=== PATIENT | male | born 1975 | race Caucasian/White ===

== ENCOUNTER 2017-12-03 14:20 | Emergency (ER) | payer OTHER ==
[2017-12-03 14:29] VITALS: BP 117/83; PULSE 101; RESP 20; TEMP 98.5
--- NOTE | 2017-12-03 15:15 | ED ---
ENT HPI - General Chief complaint: ENT Stated complaint: Sore throat Time Seen by Provider: 12/03/17 14:34 Source: patient Mode of arrival: ambulatory Limitations: no limitations - History of Present Illness Initial comments: This is a 42-year-old male with past medical history of recurrent strep throat infections who presents today for chief complaint of sore throat 2 days. Patient states that for the past 2 days he has been experiencing sore a sore throat, fatigue, and headache. She states that this feels exactly the same as when he has had previous strep throat infections. Patient admits to headache, sore throat, erythema and exudates of the tonsils, and interior cervical lymph node tenderness. Patient denies fever, chills, nausea, vomiting, difficulty swallowing, difficulty breathing, rash, cough. In addition patient denies any recent shortness of breath, chest pain, back pain, abdominal pain, numbness or tingling, dysuria or hematuria, constipation or diarrhea, headaches or visual changes, or any other complaints. Denies recent antibiotic use. Last Infection one year ago. - Related Data Previous Rx's Medication Instructions Recorded Amoxicillin 500 mg PO Q12HR 10 Days #20 cap 12/03/17 Allergies Allergy/AdvReac Type Severity Reaction Status Date / Time No Known Allergies Allergy Verified 12/03/17 14:34 Review of Systems ROS Statement: Those systems with pertinent positive or pertinent negative responses have been documented in the HPI. ROS Other: All systems not noted in ROS Statement are negative. Constitutional: Denies: fever, chills ENT: Reports: as per HPI, throat pain Respiratory: Denies: cough, dyspnea Cardiovascular: Denies: chest pain, palpitations Endocrine: Reports: fatigue Gastrointestinal: Denies: abdominal pain, nausea, vomiting, diarrhea, constipation Genitourinary: Denies: urgency, dysuria, frequency Musculoskeletal: Denies: back pain Skin: Denies: rash Neurological: Reports: as per HPI, headache. Denies: confusion Past Medical History Past Medical History: No Reported History History of Any Multi-Drug Resistant Organisms: None Reported Past Surgical History: Hernia Repair Additional Past Surgical History / Comment(s): left ankle surgery, right shoulder surgery, double hernia surgery Past Psychological History: No Psychological Hx Reported Smoking Status: Never smoker Past Alcohol Use History: Rare Past Drug Use History: None Reported General Exam - General Exam Comments Initial Comments: General: The patient is awake and alert, in no distress, and does not appear acutely ill. Eye: Pupils are equal, round and reactive to light, extra-ocular movements are intact. No nystagmus. There is normal conjunctiva bilaterally. No signs of icterus. Ears, nose, mouth and throat: There are moist mucous membranes and no oral lesions. Uvula midline, no evidence of peritonsillar abscess. Erythematous oropharnyx with erythematous, enlarged tonsils (+3) with tonsillar exudated ( white). Tenderness and enlargement of the anterior cervical lymph nodes. No posterior lymphadenopathy. Cardiovascular: There is a regular rate and rhythm. No murmur, rub or gallop is appreciated. Respiratory: Lungs are clear to auscultation, respirations are non-labored, breath sounds are equal. No wheezes, stridor, rales, or rhonchi. Gastrointestinal: [Soft, non-distended, non-tender abdomen without masses or organomegaly noted. There is no rebound or guarding present. No CVA tenderness. Bowel sounds are unremarkable.] Neurological: A&O x 3. CN II-XII intact, There are no obvious motor or sensory deficits. Coordination appears grossly intact. Speech is normal. Skin: Skin is warm and dry and no rashes or lesions are noted. Psychiatric: Cooperative, appropriate mood & affect, normal judgment. Limitations: no limitations Course Vital Signs 12/03/17 14:23 Temperature 98.5 F Pulse Rate 101 H Respiratory 20 Rate Blood Pressure 117/83 O2 Sat by Pulse 97 Oximetry Medical Decision Making - Medical Decision Making 42-year-old male with past medical history recurrent strep infections. Who presents today for chief complaint of sore throat. Physical examination revealed +3 tonsils, erythematous with tonsillar exudates. Tender and palpable cervical anterior lymphadenopathy. Vital signs within normal limits patient afebrile. Rapid strep testing positive. Patient was seen in person by Dr. Keen , who agreed with diagnosis of strep throat. Patient was discharged with prescription for amoxicillin 500 mg every 12 hours for 10 days. he can alternate Tylenol and ibuprofen for pain management as needed. He was instructed to return to emergency department if he has difficulty swallowing or breathing. or if symptoms worsen/change. Patient is to follow-up with primary care 1-2 days. It was recommended to the patient he be seen by a ENT due to recurrent strep infections . Pt agreed plan discharge in stable condition . \\ - Lab Data Lab Results 12/03/17 Range/Units 14:31 Group A Strep Rapid Positive A (Negative) Disposition Clinical Impression: Strep pharyngitis Disposition: HOME SELF-CARE Condition: Good Instructions: Strep Throat (ED) Additional Instructions: Please use medication as discussed. Please follow-up with family doctor in the next 2 days of symptoms have not improved. Please return to emergency room if the symptoms increase or worsen or for any other concerns, as discussed. Prescriptions: Amoxicillin 500 mg PO Q12HR 10 Days #20 cap Is patient prescribed a controlled substance at d/c from ED?: No Referrals: None,Stated [Primary Care Provider] - 1-2 days Time of Disposition: 15:14
== END 2017-12-03 15:17 | disposition home or self-care (01) ==
LOC: EC 14:20
DX: J02.0 Streptococcal pharyngitis (principal); R53.83 Other fatigue
CPT/HCPCS: 87430; 99283

== ENCOUNTER → 2019-07-12 | Outpatient (CLI) | payer OTHER ==
--- NOTE | 2019-07-12 20:05 | CONS ---
CONSULTATION DATE OF SERVICE: 07/12/2019 44-year-old gentleman who has been evaluated in Sleep Center for possible obstructive sleep apnea-hypopnea syndrome. HISTORY OF PRESENT ILLNESS SLEEP/WAKE EVALUATION: SLEEP SCHEDULE: Patient's usual sleep schedule on working days from around 8 to 9:00 pm until 5 a.m. On weekends from 8 or 9 p.m. until 8 a.m. FALLING ASLEEP: No problems with falling asleep, although he has TV set in bedroom. DURING SLEEP: He usually sleeps on the back and side position. According to his , he has very loud snoring and witnessed episodes of stopped breathing during sleep. Patient wakes up from sleep with episodes of choking, grinding teeth, palpitations up to 3 times per night and possibly 1 time per night with nocturia. No history of hypnagogic hallucinations, sleep paralysis or cataplexy. DURING THE DAY/SLEEP WAKE EVALUATION: In the morning, patient wakes up tired, has difficulties to pay attention, falling asleep during the day. He has problems with memory and irritability. [place] Sleepiness Scale significantly increased to 16. He may take naps around 2 to 3 pm, usually does not feel refreshed after a nap. No vivid dreams during naps. He drinks up to 3 cups of caffeinated beverages during the day. PAST MEDICAL HISTORY: History of multiple episodes of tonsillitis at young age. PAST SURGICAL HISTORY: Bilateral shoulder surgery, bilateral inguinal hernia repair. MEDICATIONS: None at the present time. SOCIAL HISTORY: Negative for smoking. Alcohol consumption rarely. FAMILY HISTORY: Hypertension heart problems, hyperlipidemia, snoring, diabetes, stomach cancer. REVIEW OF SYSTEMS: Awakenings from sleep, significant excessive daytime sleepiness during. PHYSICAL EXAM: gentleman without distress. BP 122/77, HR 76, RR 16, height 5 feet 7 inches, weight 195 pounds. Body mass index 30.0, temperature 97.8, oxygen saturation at room air 96%. HEENT: Oropharynx, short distance between soft palate and posterior pharyngeal wall. Hypertrophy of tonsils, left tonsil with a small white plaque. NECK: Supple, no JVD. Thyroid is not palpable. LUNGS: Clear to percussion and to auscultation. Good air exchange. No wheezing or rhonchi. HEART: S1, S2 regular. No murmurs, gallops, or rubs. ABDOMEN: Slightly obese. Soft and nontender. Bowel sounds are present. No organomegaly appreciated. EXTREMITIES: No clubbing or cyanosis. PORTFOLIO ARCHITECT: Awake, alert, and oriented X3. Cranial nerves 2 to 7 intact. There is no fasciculation or atrophy. noted. No focal deficits observed. IMPRESSION: 1. Loud snoring, witnessed episodes of stopped breathing during sleep. Hypertrophy of tonsils sleepiness, obstructive sleep apnea-hypopnea syndrome. 2. [place] Sleepiness Scale significantly increased to 16. Dictate necessity to include hypersomnia in differential diagnosis. 3. Mild obesity, borderline, body mass index 30.0. 4. Status post bilateral shoulder surgery. 5. Status post bilateral inguinal hernia surgery. PLAN: 1. Polysomnography for evaluation of patient's breathing during sleep. 2. CPAP/BiPAP titration if sleep study confirms obstructive sleep apnea-hypopnea syndrome. 3. Preferable position during sleep on the side. 4. No driving if patient feels any sleepiness. 5. I will see patient for follow up visit to explain results of testing and following plan. 6. Multiple sleep latency test if the sleep study will be negative for obstructive sleep apnea-hypopnea syndrome. Thank you very much for referring this patient for consultation. Sincerely, Hemanth Medina MD, PhD, FAASM Diplomat of [employer] Bean Viner of [facility] [place] MMYVROSEL / GRACEN: [id number] /
== END | disposition home or self-care (01) ==
LOC: SLEEP 13:50
PROVIDERS: ATTEND Internal Medicine
DX: G47.33 Obstructive sleep apnea (adult) (pediatric) (principal); J35.1 Hypertrophy of tonsils; E66.9 Obesity, unspecified; Z98.890 Other specified postprocedural states; Z68.30 Body mass index [BMI] 30.0-30.9, adult
CPT/HCPCS: 99211

== ENCOUNTER → 2020-01-04 | Outpatient (CLI) | payer OTHER ==
--- NOTE | 2020-01-05 08:17 | SFUN ---
SLEEP CENTER FOLLOW UP NOTE DATE OF SERVICE: A 44-year-old gentleman who has been followed in the Sleep Center for treatment of obstructive sleep apnea-hypopnea syndrome. Recently, patient had sleep studies done and I discussed results of sleep studies with him in detail. Diagnostic polysomnogram showed severe sleep apnea. During titration, aspiration was normalized. Subsequently, patient received his CPAP equipment, today since his first visit after he started to use CPAP treatment. Patient reported that he sleeps well with the machine using it every night, sleep much better than before. Feels better during the day. [place] Sleepiness Scale is 2. I checked CPAP unit, CPAP pressure in the range 4-7 cm of water. Average pressure 6.8 cm of water. Usage is 100% of the time and 92% of the time for more than 4 hours. Average usage 6 hours, 19 minutes per night. Apnea-hypopnea index 3.2, which is in normal range. MEDICATIONS: None. PHYSICAL EXAM: Patient in no distress, BP 140/81, HR 85, RR 16, weight 193.2, temperature 98.2, oxygen saturation at room air 96%. OROPHARYNX: Low position of soft palate. NECK: Supple, no JVD. Thyroid is not palpable. LUNGS: Clear to percussion and to auscultation. Good air exchange. No wheezing or rhonchi. HEART: S1, S2 regular. No murmurs, gallops, or rubs. ABDOMEN: Soft and nontender. Bowel sounds are present. No organomegaly appreciated. EXTREMITIES: No clubbing or cyanosis. DEPARTMENT STORE SALESPERSON: Awake, alert, and oriented X3. Cranial nerves 2 to 7 intact. There is no fasciculation or atrophy. noted. No focal deficits observed. IMPRESSION: 1. Severe obstructive sleep apnea-hypopnea syndrome; apnea-hypopnea index 33.3 with oxygen desaturation to 82.5% on control with CPAP. The patient demonstrated 100% compliance with treatment, benefitting from treatment. The patient daytime alertness normalized while on treatment with CPAP. 2. Mild obesity. 3. Status post bilateral shoulder surgery. 4. Status post bilateral inguinal hernia repair. 5. History of seasonal allergies. PLAN: 1. Patient will continue to use PAP equipment every night for the whole night. 2. Sleep hygiene with regular time in bed for at least 7-1/2 to 8 hours. 3. Precautions related to driving. No driving if feeling sleepiness. 4. I will maintain all necessary prescription for PAP supplies including mask, tube, filters. 5. Watching weight. 6. No driving if feeling sleepiness. 7. Follow-up visit in 6 months or earlier if patient has any problems. Thank you very much for allowing me to participate in the management of your patient. Sincerely, Hemanth Medina MD, PhD, FAASM Diplomat of [employer] of Internal Medicine Broadcast Engineer of [facility] [place] MMODL / GRACEN: [id number] /
== END | disposition home or self-care (01) ==
LOC: SLEEP 13:56
PROVIDERS: ATTEND Internal Medicine
DX: G47.33 Obstructive sleep apnea (adult) (pediatric) (principal); E66.9 Obesity, unspecified; Z99.89 Dependence on other enabling machines and devices; Z98.890 Other specified postprocedural states

== ENCOUNTER → 2020-07-04 | Outpatient (CLI) | payer OTHER ==
--- NOTE | 2020-07-05 00:18 | SFUN ---
SLEEP CENTER FOLLOW UP NOTE DATE OF SERVICE: 07/04/2020 45-year-old gentleman who has been followed in Sleep Center for treatment of obstructive sleep apnea-hypopnea syndrome. The patient successfully continues to use his CPAP equipment every night and feels comfortable with the mask. No problem with humidification. [place] Sleepiness Scale today is 2 which is totally normal. I checked his CPAP unit. Range of the pressure 4-6. Average pressure of 5.9 cm of water. Usage is 28 out of 30 nights for more than 4 hours with average usage is 6.2 hours per night. Leak is 11 L/minute which is acceptable. Apnea-hypopnea index is 2.7, which is normal. CURRENT MEDICATIONS: None. PHYSICAL EXAM: Patient in no distress. BP 131/85, HR 77, RR 15, height 5 feet and 8.5 inches, weight 195.8 pounds, body mass index 29.6, temperature 98.2, oxygen saturation at room air 98%. HEENT: PERRLA, EOMI. Oropharynx low position of soft palate. NECK: Supple, no JVD. Thyroid is not palpable. LUNGS: Clear to percussion and to auscultation. Good air exchange. No wheezing or rhonchi. HEART: S1, S2 regular. No murmurs, gallops, or rubs. ABDOMEN: Soft and nontender. Bowel sounds are present. No organomegaly appreciated. EXTREMITIES: No clubbing or cyanosis. BUSINESS INTELLIGENCE REPORTING ANALYST: Awake, alert, and oriented X3. Cranial nerves 2 to 7 intact. There is no fasciculation or atrophy. noted. No focal deficits observed. IMPRESSION: 1. Severe obstructive sleep apnea-hypopnea syndrome with AHI 33.3 on full control with CPAP. Patient demonstrated great compliance with treatment benefitting from treatment. 2. Overweight. 3. Status post bilateral shoulder surgery. 4. Status post bilateral inguinal hernia repair. 5. History of seasonal allergies. PLAN: 1. I again discussed with the patient to be sure that everything is cleaned well and be sure that the machine and tube was dry and dried in the morning after usage. 2. Patient will continue to use PAP equipment every night for the whole night. 3. Sleep hygiene with regular time in bed for at least 7-1/2 to 8 hours. 4. Precautions related to driving. No driving if feeling sleepiness. 5. I will maintain all necessary prescription for PAP supplies including mask, tube, filters. 6. Watching weight. 7. No driving if feeling sleepiness. 8. Follow-up visit in 6 months or earlier if patient has any problems. Thank you very much for allowing me to participate in management of your patient. Sincerely, Hemanth Medina MD, PhD, FAASM Diplomat of [place] [employer] Special[employer] Board of Internal Medicine [employer] Director of [facility] [place] MMODL / IJN: [id number] /
== END | disposition home or self-care (01) ==
LOC: SLEEP 13:07
PROVIDERS: ATTEND Internal Medicine
DX: G47.33 Obstructive sleep apnea (adult) (pediatric) (principal); E66.3 Overweight; Z99.89 Dependence on other enabling machines and devices; Z96.611 Presence of right artificial shoulder joint; Z96.612 Presence of left artificial shoulder joint; Z98.890 Other specified postprocedural states; Z91.09 Other allergy status, other than to drugs and biological substances

== ENCOUNTER → 2021-01-16 | Outpatient (CLI) | payer OTHER ==
--- NOTE | 2021-01-17 09:10 | SFUN ---
SLEEP CENTER FOLLOW UP NOTE DATE OF SERVICE: 01/16/2021 The 45-year-old gentleman has been followed in Sleep Center for treatment of obstructive sleep apnea-hypopnea syndrome. Patient continues to use CPAP equipment every night but developed snoring recently, according to his . [place] Sleepiness Scale today is 1, which is perfect. I checked his CPAP unit. Range of the pressure is 4-6 with average pressure of 5.9, usage 29/30 nights and 22/30 nights for more than 4 hours, average 5.5 hours per night. Leak is 25 L/minute, which is borderline. Apnea-hypopnea index is 2.3. MEDICATIONS: 1. Ibuprofen as needed. 2. Singulair once a day. PHYSICAL EXAMINATION: GENERAL: A pleasant patient in no distress. VITAL SIGNS: BP 148/70, HR 78, RR 15, height 5 feet 8-1/2 inches, weight 185 pounds, body mass index 27.7, temperature 98.8, oxygen saturation at room air 98%. HEENT: PERRLA, EOMI, evaluation of oropharynx showed tongue protrudes midline. Low position of soft palate. NECK: Supple, no JVD. Thyroid is not palpable. LUNGS: Clear to percussion and to auscultation. Good air exchange. No wheezing or rhonchi. HEART: S1, S2 regular. No murmurs, gallops, or rubs. ABDOMEN: Soft and nontender. Bowel sounds are present. No organomegaly appreciated. EXTREMITIES: No clubbing or cyanosis. DOG TRACK KENNEL MANAGER: Awake, alert, and oriented X3. Cranial nerves 2 to 7 intact. There is no fasciculation or atrophy. noted. No focal deficits observed. IMPRESSION: 1. Severe obstructive sleep apnea-hypopnea syndrome; apnea-hypopnea index 33.3. The patient demonstrated great compliance with treatment, benefitting from treatment, but developed some slight snoring on the machine. 2. Status post bilateral shoulder surgery. 3. Status post bilateral inguinal hernia repair. 4. History of seasonal allergy. PLAN: 1. I changed pressure in the machine to the range from 4-9. 2. Patient will continue to use PAP equipment every night for the whole night. 3. Sleep hygiene with regular time in bed for at least 7-1/2 to 8 hours. 4. Precautions related to driving. No driving if feeling sleepiness. 5. I will maintain all necessary prescription for PAP supplies including mask, tube, filters. 6. Watching weight. 7. Follow-up visit in 6 months or earlier if patient has any problems. Thank you very much for allowing me to participate in the management of your patient. Sincerely, Hemanth Medina MD, PhD, FAASM Diplomat of [place] [employer] Specialties Sleep Medicine Board of [place] Board of Internal Medicine Studio Owner of [facility] [place] MMODL / GRACEN: [id number] /
== END ==
LOC: SLEEP 14:11
PROVIDERS: ATTEND Internal Medicine
DX: G47.33 Obstructive sleep apnea (adult) (pediatric) (principal); Z98.890 Other specified postprocedural states; Z99.89 Dependence on other enabling machines and devices; Z87.892 Personal history of anaphylaxis

== ENCOUNTER → 2022-08-27 | Outpatient (CLI) | payer OTHER ==
--- NOTE | 2022-08-27 17:35 | P.PN ---
Subjective DATE: 08/27/2022 FOLLOW UP VISIT. Patient with obstructive sleep apnea hypopnea syndrome return to sleep center for follow-up visit. Information from previous visit have been reviewed. Patient is using PAP equipment every night for the whole night, getting PAP supplies in time. The patient does not have significant problems with the mask, PAP unit and humidification. [place] sleepiness scale is 7, which is normal. I checked information from PAP unit. PAP unit pressure 4-9, average 8.7 cm H2O. Usage is 77 % for more then 4 hours, average 5.5 hours per night. Leak is 27.8 l/m, which is in acceptable range. Apnea Hypopnea Index is 2.2, which is normal. MEDICATIONS: 1. Ibuprofen During physical exam: GENERAL: A pleasant patient without any distress. VITAL SIGNS: BP 153/87, HR 79, RR 16 , weight 188.2, temperature 97.8, oxygen saturation at room air 98 % . HEENT: PERRLA, EOMI.low position of soft palate, Mallapati 3 . NECK: Supple. No JVD. LUNGS: Clear to percussion and to auscultation. Good air exchange. No wheezing or rhonchi. HEART: S1, S2 regular. ABDOMEN: Soft and nontender.[] EXTREMITIES: No clubbing or cyanosis. PARTS PROCESSOR: Awake, alert, and oriented x3. No focal deficit. Impressions: 1. Obstructive sleep apnea-hypopnea syndrome. Patient demonstrated great compliance with treatment, benefiting from treatment. 2. History of seasonal ALLERGY. 3. Status post bilateral shoulder surgery. 4. Status post bilateral inguinal hernia repair. Plan: 1. Continue using PAP equipment every night for the whole night. 2. To change air filter at least 1-2 times per month. 3. PAP unit should stay lower then position of the head. 4. Advised patient to remove all remaining water from humidifier canister daily and make it dry after each usage. Refill canister with fresh distilled water before each usage. 5. Sleep hygiene with regular time in bed for at least 8 hours. 6. Precautions related to driving. No driving if feel any sleepiness. 7. I will maintain prescription for PAP supplies including mask, tube, filters. 8. Watching weight. 9. Follow up visit in 6 months or earlier if patient has any problems. Thank you very much for allowing me to participate in the management of your patient. Hemanth Medina MD, PhD, FAASM. Diplomat of [place] Board [employer] Sleep Medicine, Sleep Medicine Board by [place] Board of Internal Medicine Spot Machine Operator of [facility] [place]
== END ==
LOC: SLEEP 15:47
PROVIDERS: ATTEND Internal Medicine
DX: G47.33 Obstructive sleep apnea (adult) (pediatric) (principal); Z96.611 Presence of right artificial shoulder joint; Z96.612 Presence of left artificial shoulder joint; Z79.1 Long term (current) use of non-steroidal anti-inflammatories (NSAID); Z98.890 Other specified postprocedural states; Z99.89 Dependence on other enabling machines and devices
CPT/HCPCS: 99212

== ENCOUNTER → 2023-03-18 | Outpatient (CLI) | payer OTHER ==
--- NOTE | 2023-03-18 17:34 | P.PN ---
Subjective DATE: 03/18/2023 FOLLOW UP VISIT. Patient with obstructive sleep apnea hypopnea syndrome return to sleep center for follow-up visit. Information from previous visit have been reviewed. Patient is using PAP equipment every night for the whole night, getting PAP supplies in time. The patient does not have significant problems with the mask, PAP unit and humidification. [place] sleepiness scale is 5, which is normal. I checked information from PAP unit and discussed it with patient in details. PAP unit pressure 4-9 average 8.5 cm H2O. Usage is 80 % for more then 4 hours, average 5.75 hours per night. Leak is slightly increased to 34.8 l/m. Apnea Hypopnea Index is 3.6, which is normal. MEDICATIONS:1. Ibuprofen During physical exam: GENERAL: A pleasant patient without any distress. VITAL SIGNS: BP 136/86, HR 77, RR 16 , weight 179.4, temperature 98.2, oxygen saturation at room air 97 % . HEENT: PERRLA, EOMI.low position of soft palate, Mallapati 3 . NECK: Supple. No JVD. LUNGS: Clear to percussion and to auscultation. Good air exchange. No wheezing or rhonchi. HEART: S1, S2 regular. ABDOMEN: Soft and nontender.[] EXTREMITIES: No clubbing or cyanosis. CARDIOVASCULAR SURGEON: Awake, alert, and oriented x3. No focal deficit. Impressions: 1. Obstructive sleep apnea-hypopnea syndrome. Patient demonstrated good compliance with treatment, benefiting from treatment. 2. History of seasonal ALLERGY. 3. Respiratory bilateral inguinal hernia repair. 4. Status post bilateral shoulder surgery. Plan: 1. Continue using PAP equipment every night for the whole night. I increased range of the pressure to 411 centimeters of water. 2. To change air filter at least 1-2 times per month. 3. PAP unit should stay lower then position of the head. 4. Advised patient to remove all remaining water from humidifier canister daily and make it dry after each usage. Refill canister with fresh distilled water before each usage. 5. Sleep hygiene with regular time in bed for at least 8 hours. 6. Precautions related to driving. No driving if feel any sleepiness. 7. I will maintain prescription for PAP supplies including mask, tube, filters. 8. Follow up visit in 6 months or earlier if patient has any problems. 9. Watching weight. Thank you very much for allowing me to participate in the management of your patient. Hemanth Medina MD, PhD, FAASM. Diplomat of [place] Board of Sleep Medicine, Sleep Medicine Board by [place] Board of Internal Medicine Agricultural Technical Officer of [facility] [place]
== END ==
LOC: 3 N SLEEP 14:54
PROVIDERS: ATTEND Internal Medicine
DX: G47.33 Obstructive sleep apnea (adult) (pediatric) (principal); J30.2 Other seasonal allergic rhinitis; Z96.612 Presence of left artificial shoulder joint; Z96.611 Presence of right artificial shoulder joint; Z99.89 Dependence on other enabling machines and devices; Z98.890 Other specified postprocedural states
CPT/HCPCS: 99212

== ENCOUNTER 2023-06-29 13:37 | Emergency (ER) | payer OTHER ==
[2023-06-29 14:03] VITALS: TEMP 98.2
[2023-06-29 14:44] LABS: Basophils # (A) 0.1 k/uL (0-0.2); Basophils % (A) 1 %; Eosinophils # (A) 0.1 k/uL (0-0.7); Eosinophils % (A) 3 %; HCT 48.2 % (39.0-53.0); HGB 15.9 gm/dL (13.0-17.5); Lymphocytes # (A) 1.2 k/uL (1.0-4.8); Lymphocytes % (A) 25 %; MCH 29.8 pg (25.0-35.0); MCHC 32.9 g/dL (31.0-37.0); MCV 90.5 fL (80.0-100.0); Mean Platelet Volume 7.4; Monocytes # (A) 0.3 k/uL (0-1.0); Monocytes % (A) 7 %; Neutrophils # (A) 3.1 k/uL (1.3-7.7); Neutrophils % (A) 63 %; Platelet Count 183 k/uL (150-450); RBC 5.33 m/uL (4.30-5.90); RDW 12.3 % (11.5-15.5); WBC 4.9 k/uL (3.8-10.6)
[2023-06-29 14:52] LABS: Appearance,Urine Clear (Clear); Bilirubin,Urine Negative (Negative); Blood,Urine Negative (Negative); Color,Urine Colorless; Glucose,Urine (UA) Negative (Negative); Ketones,Urine Negative (Negative); Leukocyte Esterase,Urine Negative (Negative); Nitrite,Urine Negative (Negative); PH, Urine 6.5 (5.0-8.0); Protein,Urine Negative (Negative); Specific Gravity,Urine 1.007 (1.001-1.035); Urobilinogen,Urine <2.0 mg/dL (<2.0)
[2023-06-29 14:56] LABS: ALT 23 U/L (4-49); AST 30 U/L (17-59); African American GFR (CKD) >90 (>60 ml/min/1.73 sqM); Albumin 4.6 g/dL (3.5-5.0); Alkaline Phosphatase 70 U/L (38-126); Anion Gap 8 mmol/L; Blood Urea Nitrogen 11 mg/dL (9-20); Calcium 9.7 mg/dL (8.4-10.2); Carbon Dioxide 25 mmol/L (22-30); Chloride 108 mmol/L (98-107); Glucose 82 mg/dL (74-99); Non-African American GFR(CKD) >90 (>60 ml/min/1.73 sqM); Potassium 4.3 mmol/L (3.5-5.1); Sodium 141 mmol/L (137-145); Total Bilirubin 0.4 mg/dL (0.2-1.3); Total Protein 7.4 g/dL (6.3-8.2)
--- NOTE | 2023-06-29 15:18 | ED ---
Abdominal Pain HPI - General Chief Complaint: Abdominal Pain Stated Complaint: ABD PAIN Time Seen by Provider: 06/29/23 13:43 Source: patient, RN notes reviewed Mode of arrival: ambulatory Limitations: no limitations - History of Present Illness Initial Comments: This is a 48-year-old male who presents to the emergency department for abdominal pain. Reports intermittent right lower quadrant pain over the last 1- 2 weeks. This tends to occur in waves. Denies any radiation of symptoms. Yesterday he was doubled over in pain, which concerned him. He did see his primary care provider and had an abdominal x-ray demonstrating constipation. He started taking medication for this. His most recent bowel movement was this morning. He is concerned about appendicitis or a blockage. Denies any fevers/chills or nausea/vomiting. He has no urinary symptoms. MD Complaint: abdominal pain - Related Data Previous Rx's Medication Instructions Recorded Amoxicillin 500 mg PO Q12HR 10 Days #20 cap 12/03/17 Allergies Allergy/AdvReac Type Severity Reaction Status Date / Time No Known Allergies Allergy Verified 06/29/23 13:41 Review of Systems ROS Statement: Those systems with pertinent positive or pertinent negative responses have been documented in the HPI. ROS Other: All systems not noted in ROS Statement are negative. Past Medical History Past Medical History: No Reported History History of Any Multi-Drug Resistant Organisms: None Reported Past Surgical History: Hernia Repair Additional Past Surgical History / Comment(s): left ankle surgery, right shoul shefali surgery, double hernia surgery Past Psychological History: No Psychological Hx Reported Smoking Status: Former smoker Past Alcohol Use History: Occasional Past Drug Use History: None Reported General Exam Limitations: no limitations General appearance: alert, in no apparent distress Head exam: Present: atraumatic, normocephalic, normal inspection Respiratory exam: Present: normal lung sounds bilaterally. Absent: respiratory distress, wheezes, rales, rhonchi, stridor Cardiovascular Exam: Present: regular rate, normal rhythm, normal heart sounds. Absent: systolic murmur, diastolic murmur, rubs, gallop, clicks GI/Abdominal exam: Present: soft, normal bowel sounds. Absent: distended, tenderness, guarding, rebound, rigid Neurological exam: Present: alert, oriented X3, CN II-XII intact Psychiatric exam: Present: normal affect, normal mood Skin exam: Present: warm, dry, intact, normal color. Absent: rash Course Vital Signs 06/29/23 06/29/23 13:39 16:20 Temperature 98.2 F Pulse Rate 103 H 77 Respiratory 16 18 Rate Blood Pressure 134/75 136/87 O2 Sat by Pulse 98 97 Oximetry Medical Decision Making - Medical Decision Making This is a 48-year-old male who presents to the emergency department for abdominal pain. Was pt. sent in by a medical professional or institution? @ -No Did you speak to anyone other than the patient for history? @ -No Did you review nursing and triage notes? @ -Yes, and I agree, it is accurate with regards to the patient's symptoms. Were old charts reviewed? @ -No Differential Diagnosis? @ -Differential Abdominal Pain Men: Appendicitis, cholecystitis, diverticulosis, ischemic bowel, pancreatitis, hepatitis, UTI, gastroenteritis, AAA, incarcerated hernia, bowel obstruction, constipation, inflammatory bowel, hepatitis, peptic ulcer disease, splenic infarction, perforated viscus, testicular torsion, this is not meant to be an all-inclusive list EKG interpreted by me (3pts min.)? @ -Not obtained X-rays interpreted by me (1pt min.)? @ -Not obtained CT interpreted by me (1pt min.)? @ -CT scan of the abdomen and pelvis obtained. My interpretation identifies no evidence of bowel wall thickening or free air. U/S interpreted by me (1pt. min.)? @ -Not obtained What testing was considered but not performed? (CT, X-rays, U/S, labs)? Why? @ -None What meds were considered but not given? Why? @ -None Did you discuss the management of the patient with other professionals? @ -No Did you reconcile home meds? @ -No Was smoking cessation discussed for >3mins.? @ -No Was critical care preformed (if so, how long)? @ -No Were there social determinants of health that impacted care today? How? (Homeles sness, low income, unemployed, alcoholism, drug addiction, transportation, low edu. Level, literacy, decrease access to med. care, skilled nursing, rehab)? @ -No Was there de-escalation of care discussed even if they declined? (Discuss DNR or withdrawal of care, Hospice)? @ -No What co-morbidities impacted this encounter? (DM, HTN, Smoking, COPD, CAD, Cancer, CVA, Hep., AIDS, mental health diagnosis, sleep apnea, morbid obesity)? @ -None Was patient admitted / discharged? @ -Discharged. Lab work obtained and found to be unremarkable. Urinalysis is negative for signs of infection. Computed tomography scan of the abdomen and pelvis obtained demonstrating the hernia mesh in the appropriate position. There does remain a small right fat-containing inguinal hernia. Appendix was normal and no other acute process was identified. Findings reviewed with the patient. Discussed the possibility of the fat containing hernia causing occasional episodes of pain. He was given information for general surgery follow up regarding the hernia and otherwise discharged home in stable condition. Advised ibuprofen and Tylenol as needed for pain relief. Undiagnosed new problem with uncertain prognosis? @ -None Drug Therapy requiring intensive monitoring for toxicity (Heparin, Nitro, Insulin, Cardizem)? @ -None Were any procedures done? @ -None Diagnosis/symptom? @ -Abdominal pain Acute, or Chronic, or Acute on Chronic? @ -Acute Uncomplicated (without systemic symptoms) or Complicated (systemic symptoms)? @ -Uncomplicated Side effects of treatment? @ -None Exacerbation, Progression, or Severe Exacerbation] @ -Not applicable Poses a threat to life or bodily function? @ -No Return precautions reviewed in depth, the patient is instructed to return to the emergency department with any new, worsening, or concerning symptoms. Patient verbalized understanding. This case was discussed in detail with the attending ED physician, Dr. Bunch. Presentation, findings, and treatment plan discussed in detail as well. - Lab Data Result diagrams: 06/29/23 14:23 06/29/23 14:23 Lab Results 06/29/23 06/29/23 06/29/23 Range/Units 14:23 14:23 14:23 WBC 4.9 (3.8-10.6) k/uL RBC 5.33 (4.30-5.90) m/uL Hgb 15.9 (13.0-17.5) gm/dL Hct 48.2 (39.0-53.0) % MCV 90.5 (80.0-100.0) fL MCH 29.8 (25.0-35.0) pg MCHC 32.9 (31.0-37.0) g/dL RDW 12.3 (11.5-15.5) % Plt Count 183 (150-450) k/uL MPV 7.4 Neutrophils % 63 % Lymphocytes % 25 % Monocytes % 7 % Eosinophils % 3 % Basophils % 1 % Neutrophils # 3.1 (1.3-7.7) k/uL Lymphocytes # 1.2 (1.0-4.8) k/uL Monocytes # 0.3 (0-1.0) k/uL Eosinophils # 0.1 (0-0.7) k/uL Basophils # 0.1 (0-0.2) k/uL Sodium 141 (137-145) mmol/L Potassium 4.3 (3.5-5.1) mmol/L Chloride 108 H (98-107) mmol/L Carbon Dioxide 25 (22-30) mmol/L Anion Gap 8 mmol/L BUN 11 (9-20) mg/dL Creatinine 0.93 (0.66-1.25) mg/dL Est GFR (CKD-EPI)AfAm >90 (>60 ml/min/1.73 sqM) Est GFR (CKD-EPI)NonAf >90 (>60 ml/min/1.73 sqM) Glucose 82 (74-99) mg/dL Plasma Lactic Acid Tulio (0.7-2.0) mmol/L Calcium 9.7 (8.4-10.2) mg/dL Total Bilirubin 0.4 (0.2-1.3) mg/dL AST 30 (17-59) U/L ALT 23 (4-49) U/L Alkaline Phosphatase 70 (38-126) U/L Total Protein 7.4 (6.3-8.2) g/dL Albumin 4.6 (3.5-5.0) g/dL Urine Color Colorless Urine Appearance Clear (Clear) Urine pH 6.5 (5.0-8.0) Ur Specific [place] 1.007 (1.001-1.035) Urine Protein Negative (Negative) Urine Glucose (UA) Negative (Negative) Urine Ketones Negative (Negative) Urine Blood Negative (Negative) Urine Nitrite Negative (Negative) Urine Bilirubin Negative (Negative) Urine Urobilinogen <2.0 (<2.0) mg/dL Ur Leukocyte Esterase Negative (Negative) 06/29/23 Range/Units 14:23 WBC (3.8-10.6) k/uL RBC (4.30-5.90) m/uL Hgb (13.0-17.5) gm/dL Hct (39.0-53.0) % MCV (80.0-100.0) fL MCH (25.0-35.0) pg MCHC (31.0-37.0) g/dL RDW (11.5-15.5) % Plt Count (150-450) k/uL MPV Neutrophils % % Lymphocytes % % Monocytes % % Eosinophils % % Basophils % % Neutrophils # (1.3-7.7) k/uL Lymphocytes # (1.0-4.8) k/uL Monocytes # (0-1.0) k/uL Eosinophils # (0-0.7) k/uL Basophils # (0-0.2) k/uL Sodium (137-145) mmol/L Potassium (3.5-5.1) mmol/L Chloride (98-107) mmol/L Carbon Dioxide (22-30) mmol/L Anion Gap mmol/L BUN (9-20) mg/dL Creatinine (0.66-1.25) mg/dL Est GFR (CKD-EPI)AfAm (>60 ml/min/1.73 sqM) Est GFR (CKD-EPI)NonAf (>60 ml/min/1.73 sqM) Glucose (74-99) mg/dL Plasma Lactic Acid Tulio 1.3 (0.7-2.0) mmol/L Calcium (8.4-10.2) mg/dL Total Bilirubin (0.2-1.3) mg/dL AST (17-59) U/L ALT (4-49) U/L Alkaline Phosphatase (38-126) U/L Total Protein (6.3-8.2) g/dL Albumin (3.5-5.0) g/dL Urine Color Urine Appearance (Clear) Urine pH (5.0-8.0) Ur Specific [place] (1.001-1.035) Urine Protein (Negative) Urine Glucose (UA) (Negative) Urine Ketones (Negative) Urine Blood (Negative) Urine Nitrite (Negative) Urine Bilirubin (Negative) Urine Urobilinogen (<2.0) mg/dL Ur Leukocyte Esterase (Negative) - Radiology Data Radiology results: report reviewed, image reviewed Disposition Clinical Impression: Abdominal pain, Right inguinal hernia Disposition: HOME SELF-CARE Instructions (If sedation given, give patient instructions): Inguinal Hernia (ED), Abdominal Pain (ED) Additional Instructions: Return to the emergency department with any new, worsening, or concerning symptoms. Alternate with ibuprofen and Tylenol as needed for pain relief. Contact the general surgeon listed below for further evaluation of the inguinal hernia to see if that may be contributing to your symptoms. Follow up with your primary care provider in 1-2 days. Is patient prescribed a controlled substance at d/c from ED?: No Referrals: Yamileth Geiger MD [Primary Care Provider] - 1-2 days Farhat Dotson MD [STAFF PHYSICIAN] - 1-2 days Time of Disposition: 16:05
--- NOTE | 2023-06-29 15:55 | CT ---
EXAMINATION TYPE: CT abdomen pelvis w con CT DLP: 903 mGycm, Automated exposure control for dose reduction was used. DATE OF EXAM: 06/29/2023 3:43 PM COMPARISON: None CLINICAL INDICATION:Male, 48 years old with history of RLQ abdominal pain; RLQ abdominal pain. TECHNIQUE: Axial CT abdomen pelvis w con;Sagittal and coronal reformats were created on a separate w orkstation. Contrast used:100 ml mL of Isovue 300 with IV Contrast, (none if empty) Oral contrast used: without Oral Contrast (none if empty) FINDINGS: LOWER CHEST: Unremarkable ABDOMEN LIVER: Unremarkable GALLBLADDER AND BILE DUCTS: Unremarkable. PANCREAS: Unremarkable. SPLEEN: Unremarkable. ADRENAL GLANDS: Unremarkable. KIDNEYS AND URETERS: No evidence of hydronephrosis or renal calculus. The ureters are unremarkable. PELVIS BLADDER: Unremarkable REPRODUCTIVE: Unremarkable. ABDOMEN & PELVIS STOMACH AND BOWEL: No evidence of bowel obstruction. Appendix is visualized and normal. PERITONEUM/RETROPERITONEUM: No evidence of pneumoperitoneum or free fluid. VASCULATURE: No evidence of aortic aneurysm. MUSCULOSKELETAL: No acute osseous abnormalities LYMPH NODES: No gross evidence for lymphadenopathy. SOFT TISSUE/ABDOMINAL WALL: hernia repair mesh in place bilaterally. There remains a fat-containing i nguinal hernia in the right. Surgical clips in the left. Fat-containing umbilical hernia. IMPRESSION: 1. Hernia repair mesh appears in appropriate position. There remains a small right fat-containing in guinal hernia. 2. No evidence for obstructive uropathy or renal calculus. The appendix is normal. 3. Colonic diverticulosis.
[2023-06-29] MEDS: ACET/COD 300 MG/30 MG STARTER PACK 6 TAB BTL PO STA (16:16)
[2023-06-29 16:28] VITALS: BP 136/87; PULSE 77; RESP 18
== END 2023-06-29 16:21 | disposition home or self-care (01) ==
LOC: EC 13:37
DX: K40.90 Unilateral inguinal hernia, without obstruction or gangrene, not specified as recurrent (principal); K57.30 Diverticulosis of large intestine without perforation or abscess without bleeding; Z87.891 Personal history of nicotine dependence
CPT/HCPCS: 36415; 74177; 80053; 81003; 83605; 85025; 99284

== ENCOUNTER → 2024-09-13 | Outpatient (CLI) | payer OTHER ==
[2024-09-13 11:11] VITALS: BP 153/81; PULSE 82; RESP 16; TEMP 97.4
--- NOTE | 2024-09-13 12:17 | P.PROGSL ---
Subjective DATE: 09/13/2024 FOLLOW UP VISIT. Patient with obstructive sleep apnea hypopnea syndrome return to sleep center for follow-up visit. Information from previous visit have been reviewed. Patient is using PAP equipment every night for the whole night, getting PAP supplies in time. The patient does not have significant problems with the mask, PAP unit and humidification. [place] sleepiness scale is 5. I checked information from PAP unit. PAP unit pressure for 11, average 10.5 cm H2O. Usage is 83% for more then 4 hours, average 6 hours per night. Leak is slightly increased to 33.6 l/m. Apnea Hypopnea Index is 4.1, which is normal. MEDICATIONS have been reviewed, please see below. During physical exam: GENERAL: A pleasant patient without any distress. VITAL SIGNS: Please see below, weight is 185 lbs. HEENT: PERRLA, EOMI.low position of soft palate, [place] 4 . NECK: Supple. No JVD. LUNGS: Clear to percussion and to auscultation. Good air exchange. No wheezing or rhonchi. HEART: S1, S2 regular. ABDOMEN: Soft and nontender.[] EXTREMITIES: No clubbing or cyanosis. RETAIL CLIENT MANAGER: Awake, alert, and oriented x3. No focal deficit. Impressions: 1. Obstructive sleep apnea-hypopnea syndrome. Patient demonstrated great compliance with treatment, benefiting from treatment. 2. History of seasonal allergy. 3. Status post bilateral shoulder surgery. 4. Status post bilateral inguinal hernia repair. Plan: 1. Continue using PAP equipment every night for the whole night. 2. Sleep hygiene with regular time in bed for at least 7.5-8 hours 3. PAP unit should stay lower then position of the head. 4. Advised patient to remove all remaining water from humidifier canister daily and make it dry after each usage. Refill canister with fresh distilled water before each usage. 5. Watching weight. 6. Precautions related to driving. No driving if feel any sleepiness. 7. I will maintain prescription for PAP supplies including mask, tube, filters. 8. Follow up visit in 8 months or earlier if patient has any problems. Thank you very much for allowing me to participate in the management of your patient. Hemanth Medina MD, PhD, FAASM. Diplomat of [place] [employer], Sleep Medicine Board by [place] [employer] [facility] [place] Objective - Vital Signs Vital Signs: Vital Signs Temp 97.4 F L 09/13/24 11:11 Pulse 82 09/13/24 11:11 Resp 16 09/13/24 11:11 BP 153/81 09/13/24 11:11 Pulse Ox 97 09/13/24 11:11 FiO2 Home Medications: Home Medications Medication Instructions Recorded Confirmed Type Amoxicillin 500 mg PO Q12HR 10 Days #20 cap 12/03/17 Rx Ibuprofen [Motrin] 800 mg PO Q8H PRN 09/13/24 09/13/24 History Montelukast [Singulair] 10 mg PO DAILY 09/13/24 09/13/24 History
== END ==
LOC: 3 N SLEEP 10:55
PROVIDERS: ATTEND Internal Medicine
DX: G47.33 Obstructive sleep apnea (adult) (pediatric) (principal); J30.2 Other seasonal allergic rhinitis; Z98.890 Other specified postprocedural states
CPT/HCPCS: 99212

== ENCOUNTER 2024-09-16 02:11 | Emergency (ER) | payer OTHER ==
[2024-09-16 02:15] VITALS: RESP 18
--- NOTE | 2024-09-16 02:35 | ED ---
General Adult HPI - General Chief complaint: Arrhythmia/Palpitations Stated complaint: Heart Palpitations, L Arm Numbness Time Seen by Provider: 09/16/24 02:19 Source: patient, RN notes reviewed, old records reviewed Mode of arrival: ambulatory Limitations: no limitations - History of Present Illness Initial comments: Patient is a 49-year-old male who presents emergency department complaining of heart palpitations and left arm paresthesia/numbness. States symptoms started at 1 AM. He has a history of chronic palpitations but they seem to be worse over the last 2 weeks or so. Does have a remote history of having a Holter monitor which showed no obvious etiology for the symptoms. Does not regularly follow-up with a copier technician. Denies any caleb chest pain. Denies any nausea vomiting or diaphoresis. Denies any shortness of breath. Patient also was experiencing left arm paresthesia/numbness. 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 Currently only have mild paresthesias of the left arm but still has normal sensation otherwise. Denies any chest pain or palpitations currently. Presents for further evaluation at this time. No significant cardiac history otherwise. - Related Data Home Medications Medication Instructions Recorded Confirmed Ibuprofen [Motrin] 800 mg PO Q8H PRN 09/13/24 09/13/24 Montelukast [Singulair] 10 mg PO DAILY 09/13/24 09/13/24 Previous Rx's Medication Instructions Recorded Amoxicillin 500 mg PO Q12HR 10 Days #20 cap 12/03/17 Allergies Allergy/AdvReac Type Severity Reaction Status Date / Time No Known Allergies Allergy Verified 09/16/24 02:15 Review of Systems ROS Statement: Those systems with pertinent positive or pertinent negative responses have been documented in the HPI. Review of Systems: CONST: Denies fever EYES: Denies blurry vision ENT: Denies nasal congestion C/V: Denies Chest pain RESP: Denies shortness of breath GI: Denies abdominal pain : Denies dysuria SKIN: Denies rash. MSK: Denies joint pain. NEURO: Denies headache ROS Other: All systems not noted in ROS Statement are negative. Past Medical History Past Medical History: Hypertension, Sleep Apnea/CPAP/BIPAP History of Any Multi-Drug Resistant Organisms: None Reported Past Surgical History: Hernia Repair Additional Past Surgical History / Comment(s): left ankle surgery, right shoulder surgery, double hernia surgery Past Psychological History: No Psychological Hx Reported Smoking Status: Former smoker Past Alcohol Use History: Occasional Past Drug Use History: None Reported General Exam - General Exam Comments Initial Comments: General: Appears in no acute distress. HEAD: Normal with no signs of head trauma. EYES: PERRLA, EOMI, conjunctiva normal, no discharge. ENT: Hearing grossly intact, normal oropharynx. RESPIRATORY: Clear breath sounds bilaterally. No wheezes, rales, or rhonchi. C/V: Regular rate and rhythm. S1 and S2 auscultated, no edema, peripheral pulses 2+ and intact throughout ABD: Abd is soft, nontender, nondistended EXT: Normal range of motion, no obvious deformity SKIN: No rashes or lesions observed on exposed skin. NEURO: Alert and oriented x 4. Cranial nerves II-XII intact. No focal sensory or strength deficits. NIH is 0. GCS of 15. No obvious sensory deficits on exam. Patient states subjective paresthesias to the left arm. Denies decrease sensation to light touch of the left arm. Limitations: no limitations Course Vital Signs 09/16/24 09/16/24 02:12 03:37 Temperature 97.9 F Pulse Rate 123 H 87 Respiratory 18 18 Rate Blood Pressure 164/88 122/80 O2 Sat by Pulse 96 97 Oximetry Medical Decision Making - Medical Decision Making Was pt. sent in by a medical professional or institution ([facility], [facility], urgent care, hospital, or senior care...) When possible be specific @ -No Did you speak to anyone other than the patient for history (EMS, parent, family, police, friend...)? What history was obtained from this source @ -No Did you review nursing and triage notes (agree or disagree)? Why? @ -I reviewed and agree with nursing and triage notes Were old charts reviewed (outside hosp., previous admission, EMS record, old EKG, old radiological studies, urgent care reports/EKG's, senior care records)? Report findings @ -No old charts were reviewed Differential Diagnosis (chest pain, altered mental status, abdominal pain women, abdominal pain men, vaginal bleeding, weakness, fever, dyspnea, syncope, headache, dizziness, GI bleed, back pain, seizure, CVA, palpatations, mental health, musculoskeletal)? @ -Differential Palpitations Ventricular arrhythmias, atrial arrhythmias, myocardial infarction, anemia, thyrotoxicosis, electrolyte imbalance, hypokalemia, pulmonary embolism, pulmonary disease, drugs, alcohol, anxiety, stress.... This is not meant to be an all-inclusive list. EKG interpreted by me (3pts min.). @ -As above X-rays interpreted by me (1pt min.). @ -Chest x-ray reveals no obvious acute cardiopulmonary process. CT interpreted by me (1pt min.). @ -None done U/S interpreted by me (1pt. min.). @ -None done What testing was considered but not performed or refused? (CT, X-rays, U/S, labs)? Why? @ -None What meds were considered but not given or refused? Why? @ -None Did you discuss the management of the patient with other professionals (professionals i.e. , PA, [facility], lab, RT, psych nurse, aids social worker, survey coordinator, teacher, hotel security officer, skilled nursing case manager)? Give summary @ -No Was smoking cessation discussed for >3mins.? @ -No Was critical care preformed (if so, how long)? @ -No Were there social determinants of health that impacted care today? How? (Homelessness, low income, unemployed, alcoholism, drug addiction, tra nsportation, low edu. Level, literacy, decrease access to med. care, correction, rehab)? @ -No Was there de-escalation of care discussed even if they declined (Discuss DNR or withdrawal of care, Hospice)? DNR status @ -No What co-morbidities impacted this encounter? (DM, HTN, Smoking, COPD, CAD, Cancer, CVA, ARF, Chemo, Hep., AIDS, mental health diagnosis, sleep apnea, morbid obesity)? @ -None Was patient admitted / discharged? Hospital course, mention meds given and route, prescriptions, significant lab abnormalities, going to OR and other pertinent info. @ -Presents for chronic heart palpitations as well as left arm paresthesias. The palpitations are currently nonexistent but he is having the left arm paresthesias. No obvious focal numbness of the left arm. NIH is 0. No chest pain, diaphoresis, nausea or vomiting. Concern for possible cardiac etiology. Patient and family. We will obtain cardiopulmonary workup. He was in agreement this plan. He will be given 324 mg of aspirin as well as a 1 L fluid bolus. EKG shows no signs of acute ischemia.Chest x-ray unremarkable. Laboratory studies are remarkable for an undetectable troponin. BNP is undetectable. TSH within normal limits. Remainder the workup unremarkable. On reevaluation, all symptoms have resolved. We discussed at length options for disposition. This included observation admission for cardiac evaluation. Patient feels this is not needed at this time. Patient never had chest pain. No history of cardiac stents. Primary complaint was the arm paresthesia which resolved and patient has chronic heart palpitations which she never had in the emergency department. Never had chest pain, nausea, vomiting, diaphoresis. We discussed at length and he would like to go home. I believe this is reasonable after we discussed the risks, including the fact that if it is his heart, he could suffer significant morbidity mortality if he goes home and does not stay for observation. He does understand this. Patient has follow-up with his PCP next Wednesday. Patient will be discharged home at this time. I instructed the patient to follow up with their PCP in the next 1-3 days. I explained that the patient should return to the emergency department if they experience any worsening symptoms. Strict return precautions were discussed with the patient. The patient expressed understanding of these instructions. I answered all questions that the patient had. The patient was discharged home in good condition with their prescriptions and follow up information. Undiagnosed new problem with uncertain prognosis? @ -No Drug Therapy requiring intensive monitoring for toxicity (Heparin, Nitro, Insulin, Cardizem)? @ -No Were any procedures done? @ -No Diagnosis/symptom? @ -Heart palpitations Acute, or Chronic, or Acute on Chronic? @ -Chronic Uncomplicated (without systemic symptoms) or Complicated (systemic symptoms)? @ -Uncomplicated Side effects of treatment? @ -None Exacerbation, Progression, or Severe Exacerbation] @ -No Poses a threat to life or bodily function? @ -Unlikely at this time Diagnosis/symptom? @ -Left arm paresthesia Acute, or Chronic, or Acute on Chronic? @ -Acute Uncomplicated (without systemic symptoms) or Complicated (systemic symptoms)? @ -Uncomplicated Side effects of treatment? @ -None Exacerbation, Progression, or Severe Exacerbation] @ -No Poses a threat to life or bodily function? @ -Unlikely at this time - Lab Data Result diagrams: 09/16/24 02:28 09/16/24 02:28 Lab Results 09/16/24 09/16/24 09/16/24 Range/Units 02:28 02:28 02:28 WBC 6.15 (4.50-10.00) 10*3/uL RBC 5.31 (4.40-5.60) 10*6/uL Hgb 15.8 (13.0-17.0) g/dL Hct 47.2 (39.6-50.0) % MCV 88.9 (80.0-97.0) fL MCH 29.8 (27.0-32.0) pg MCHC 33.5 (32.0-37.0) g/dL Plt Count 170 (140-440) 10*3/uL MPV 8.8 L (9.5-12.2) fL Immature Gran % (Auto) 0.2 % Neutrophils % 39.2 % Lymphocytes % 48.1 % Monocytes % 7.8 % Eosinophils % 3.7 % Basophils % 1.0 % Immature Gran # 0.01 (0.00-0.04) 10*3/uL Neutrophils # 2.41 (1.80-7.70) 10*3/uL Lymphocytes # 2.96 (0.90-5.00) 10*3/uL Monocytes # 0.48 (0.20-1.00) 10*3/uL Eosinophils # 0.23 (0.04-0.35) 10*3/uL Basophils # 0.06 (0.00-0.10) 10*3/uL Sodium 138 (137-145) mmol/L Potassium 3.7 (3.5-5.1) mmol/L Chloride 104 (98-107) mmol/L Carbon Dioxide 19 L (22-30) mmol/L Anion Gap 15 mmol/L BUN 12 (9-20) mg/dL Creatinine 1.03 (0.66-1.25) mg/dL Est GFR (CKD-EPI)AfAm >90 (>60 ml/min/1.73 sqM) Est GFR (CKD-EPI)NonAf 87 (>60 ml/min/1.73 sqM) Glucose 99 (74-99) mg/dL Calcium 9.2 (8.4-10.2) mg/dL Magnesium 2.0 (1.6-2.3) mg/dL Total Bilirubin 0.7 (0.2-1.3) mg/dL AST 38 (17-59) U/L ALT 31 (4-49) U/L Alkaline Phosphatase 99 (38-126) U/L Troponin I <0.012 (0.000-0.034) ng/mL NT-Pro-B Natriuret Pep <20 pg/mL Total Protein 7.3 (6.3-8.2) g/dL Albumin 4.6 (3.5-5.0) g/dL TSH 1.140 (0.465-4.680) mIU/L - EKG Data -: EKG Interpreted by Me EKG Comments: 12-lead Electrocardiogram Interpretation Note EKG was reviewed and interpreted by myself. 12-lead ECG performed at 0219 is interpreted by me as revealing sinus tachycardia at a rate of 104 beats per minute. [place] is normal. [place] interval is 164 ms, QRS duration is 118 ms, QTc is 424 ms.. There were no ST or T wave abnormalities to suggest myocardial ischemia or injury. R wave progression across the precordium was satisfactory. By my interpretation this EKG is non-diagnostic for acute ischemia. Disposition Clinical Impression: Heart palpitations, Arm paresthesia, left Disposition: HOME SELF-CARE Condition: Good Instructions (If sedation given, give patient instructions): Heart Palpitations (ED) Additional Instructions: Diagnosis today is arm paresthesias with chronic heart palpitations. Your workup today was unremarkable. As we discussed, follow-up with your copier technician and PCP. Return if any worsening symptoms. Is patient prescribed a controlled substance at d/c from ED?: No Referrals: Yamileth Geiger MD [Primary Care Provider] - 1-2 days Time of Disposition: 03:57
[2024-09-16] MEDS: ASPIRIN 81 MG PO STA (02:39)
[2024-09-16] MEDS: SODIUM CHLORIDE 0.9% 1,000 ML IV STA (02:40)
[2024-09-16 02:59] LABS: Basophils # (A) 0.06 10*3/uL (0.00-0.10); Eosinophils # (A) 0.23 10*3/uL (0.04-0.35); Eosinophils % (A) 3.7 %; HCT 47.2 % (39.6-50.0); HGB 15.8 g/dL (13.0-17.0); Lymphocytes # (A) 2.96 10*3/uL (0.90-5.00); Lymphocytes % (A) 48.1 %; MCH 29.8 pg (27.0-32.0); MCHC 33.5 g/dL (32.0-37.0); MCV 88.9 fL (80.0-97.0); Mean Platelet Volume 8.8 fL (9.5-12.2); Monocytes # (A) 0.48 10*3/uL (0.20-1.00); Monocytes % (A) 7.8 %; Neutrophils # (A) 2.41 10*3/uL (1.80-7.70); Neutrophils % (A) 39.2 %; Platelet Count 170 10*3/uL (140-440); RBC 5.31 10*6/uL (4.40-5.60); RDW 12.7 % (11.5-14.5); WBC 6.15 10*3/uL (4.50-10.00)
[2024-09-16 03:16] LABS: ALT 31 U/L (4-49); AST 38 U/L (17-59); African American GFR (CKD) >90 (>60 ml/min/1.73 sqM); Albumin 4.6 g/dL (3.5-5.0); Alkaline Phosphatase 99 U/L (38-126); Anion Gap 15 mmol/L; Blood Urea Nitrogen 12 mg/dL (9-20); Calcium 9.2 mg/dL (8.4-10.2); Carbon Dioxide 19 mmol/L (22-30); Chloride 104 mmol/L (98-107); Glucose 99 mg/dL (74-99); Non-African American GFR(CKD) 87 (>60 ml/min/1.73 sqM); Potassium 3.7 mmol/L (3.5-5.1); Sodium 138 mmol/L (137-145); Total Bilirubin 0.7 mg/dL (0.2-1.3); Total Protein 7.3 g/dL (6.3-8.2)
[2024-09-16 03:24] LABS: NT-Pro-B-Type Natriuretic Pept <20 pg/mL
--- NOTE | 2024-09-16 03:30 | XR ---
EXAM: XR Chest, 2 Views CLINICAL HISTORY: ITS.REASON XR Reason: Chest Pain TECHNIQUE: Frontal and lateral views of the chest. COMPARISON: No previous studies. FINDINGS: Lungs: Unremarkable. No consolidative changes or pleural effusions. Pleural space: See above. Heart: Heart is normal in size. No cardiomegaly. Mediastinum: Unremarkable. Normal mediastinal contour. Bones/joints: Mild to moderate degenerative disc disease and mild kyphosis. No acute fracture. IMPRESSION: No consolidative changes or pleural effusions.
[2024-09-16 04:10] VITALS: BP 133/84; PULSE 75; TEMP 98.2
[2024-09-16 04:26] LABS: Partial Thromboplastin Time 22.5 sec (22.0-30.0); Prothrombin Time 10.7 sec (10.0-12.5)
== END 2024-09-16 04:10 | disposition home or self-care (01) ==
LOC: EC 02:11
DX: R00.2 Palpitations (principal); R20.2 Paresthesia of skin; Z87.891 Personal history of nicotine dependence
CPT/HCPCS: 36415; 71046; 80053; 83735; 83880; 84443; 84484; 85025; 85610; 85730; 93005; 96360; 99285